=== PATIENT | male | born 1965 | race African-American/Black ===

== ENCOUNTER 2025-01-27 10:58 | Emergency (ER) | payer BC, OTHER ==
[2025-01-27 11:30] VITALS: BP 133/85; PULSE 89; RESP 18; TEMP 97.8; BMI 31.1
[2025-01-27] MEDS ORDERED: KETOROLAC TROMETHAMINE 30 MG/1 ML VIAL ONE (11:35)
[2025-01-27] MEDS: KETOROLAC TROMETHAMINE 30 MG/1 ML VIAL IM ONE (11:46)
[2025-01-27 12:40] LABS: ABSOLUTE IMMATURE GRANULOCYTES 0.01 x10^3/uL (0.0-0.031); BASOPHILS # 0.02 x10^3/uL (0.01-0.08); EOSINOPHIL % 2.2 % (0.8-7.0); EOSINOPHILS # 0.15 x10^3/uL (0.04-0.54); HEMATOCRIT 42.1 % (40.1-51.0); HEMOGLOBIN 13.1 g/dL (13.7-17.5); MCHC 31.1 g/dl (32.3-36.5); MEAN CELL VOLUME 78.8 fl (79.0-92.2); MEAN PLT VOLUME 10.7 fl (9.4-12.4); MONOCYTE # 0.73 x10^3/uL (0.30-0.82); MONOCYTE % 10.6 % (5.3-12.2); PLATELET COUNT 197 x10^3/uL (163-337); RDW 14.5 % (12.2-16.1)
[2025-01-27] MEDS ORDERED: ACETAMINOPHEN INJECTION 100 ML ONE (12:42)
[2025-01-27] MEDS: ACETAMINOPHEN 1000 MG/100 ML BAG IVPB ONE (12:45)
[2025-01-27 12:57] LABS: ALBUMIN 4.1 g/dl (3.4-5.0); ALK PHOS 83 U/L (45-117); ANION GAP 7 mmol/L (4-13); BILIRUBIN,TOTAL 0.4 mg/dl (0.2-1); CALCIUM 9.4 mg/dl (8.5-10.1); CHLORIDE 105 mmol/L (98-107); CO2 24 mmol/L (21-32); CREATININE 1.3 mg/dl (0.6-1.3); GLUCOSE,RANDOM 104 mg/dl (74-106); POTASSIUM 4.3 mmol/L (3.5-5.1); SGOT/AST 14 U/L (15-37); SGPT/ALT 18 U/L (7-52); SODIUM 136 mmol/L (136-145); TOT PROT 7.4 g/dl (6.4-8.2)
[2025-01-27 15:42] LABS: HCV DIAGNOSTIC IN-HOUSE W/RFLX NON-REACTIVE (NONREACTIVE)
[2025-01-27 15:43] LABS: HIV INTERPRETATION NEGATIVE (NEGATIVE)
== END 2025-01-27 15:35 | disposition home or self-care (01) ==
LOC: FER 10:58
PROC: 3E033NZ Introduction of Analgesics, Hypnotics, Sedatives into Peripheral Vein, Percutaneous Approach (ICD-10-PCS; principal; 2025-01-27)
PROC: 3E0233Z Introduction of Anti-inflammatory into Muscle, Percutaneous Approach (ICD-10-PCS; 2025-01-27)
DX: S39.011A Strain of muscle, fascia and tendon of abdomen, initial encounter (principal); X50.1XXA Overexertion from prolonged static or awkward postures, initial encounter
CPT/HCPCS: 36415; 72170-TC-FY; 73502-TC-RT-FY; 74177-TC; 80053; 85025; 86140; 86803; 87389; 99285-25; J0131; Q9967